=== PATIENT | female | born 1995 | race Caucasian/White ===

== ENCOUNTER 2018-11-18 10:08 | Inpatient (IN) | payer BC | END 2018-11-20 10:25 | disposition home or self-care (01) | LOC: WSH 11-19 11:32 → LDH 10:08 | PROC: 3E0P7VZ Introduction of Hormone into Female Reproductive, Via Natural or Artificial Opening (ICD-10-PCS; principal; ~2018-11-18) | PROC: 10E0XZZ Delivery of Products of Conception, External Approach (ICD-10-PCS; ~2018-11-18) | DX: Z37.0 Single live birth (principal); Z3A.39 39 weeks gestation of pregnancy ==

== ENCOUNTER 2022-12-30 01:24 | Observation (INO) | payer MEDICAID ==
[~2022-12-30 01:24] MED LIST: FERR325T22 PO; PREN-154 PO
[2022-12-31] MEDS ORDERED: IBUP-2077 PO (10:04)
== END 2022-12-30 04:58 | disposition home or self-care (01) ==
LOC: LDH 01:24
PROVIDERS: ADMIT Obstetrics & Gynecology; ATTEND Obstetrics & Gynecology
DX: O42.92 Full-term premature rupture of membranes, unspecified as to length of time between rupture and onset of labor (principal); Z3A.38 38 weeks gestation of pregnancy
CPT/HCPCS: G0378 ×4; G0379